=== PATIENT | female | born 1985 | race Caucasian/White ===

== ENCOUNTER 2018-11-18 10:34 | Outpatient (CLI) | payer MEDICAID ==
[2018-11-18 11:17] LABS: ADD UMIC YES; UR ASCORBIC ACID NEGATIVE (NEGATIVE); UR BILIRUBIN (Dip) NEGATIVE (NEGATIVE); UR BLOOD (Dip) NEGATIVE (NEGATIVE); UR CLARITY SLIGHTLY CLOUDY (CLEAR); UR COLOR YELLOW (YELLOW); UR GLUCOSE (Dip) NEGATIVE (NEGATIVE); UR KETONES (Dip) NEGATIVE (NEGATIVE); UR LEUKOCYTE ESTERASE (Dip) TRACE Leu/ul (NEGATIVE); UR MUCUS FEW /HPF (NONE SEEN); UR NITRITE (Dip) NEGATIVE (NEGATIVE); UR RBC 2 /HPF (0-5); UR SPECIFIC GRAVITY (Dip) 1.014 (1.003-1.030); UR SQUAMOUS EPITHELIAL CELL FEW /HPF (FEW); UR TOTAL PROTEIN (Dip) NEGATIVE (NEGATIVE); UR UROBILINOGEN (Dip) NEGATIVE (NEGATIVE); UR WBC 1 /HPF (0-5)
[2018-11-18 11:21] LABS: ADD MAN DIFF? NO
[2018-11-18 11:25] LABS: WHITE BLOOD COUNT 8.9 10^3/ul (4.8-10.8)
[2018-11-18 11:25] LABS: BASOPHIL # 0.1 10^3/ul (0.0-0.1); BASOPHILS % 0.6 % (0.0-2.0); EOSINOPHILS # 0.1 10^3/ul (0.0-0.5); EOSINOPHILS % 0.7 % (0.0-7.0); HEMATOCRIT 36.5 % (37.0-47.0); HEMOGLOBIN 12.1 g/dl (12.0-16.0); LYMPHOCYTES # 2.2 10^3/ul (0.8-2.9); LYMPHOCYTES % 24.5 % (15.0-51.0); MEAN CORPUSCULAR HEMOGLOBIN 31.3 pg (29.0-33.0); MEAN CORPUSCULAR HGB CONC 33.2 g/dl (32.0-37.0); MEAN CORPUSCULAR VOLUME 94.3 fl (82.0-101.0); MEAN PLATELET VOLUME 10.4 fl (7.4-10.4); MONOCYTE # 0.6 10^3/ul (0.3-0.9); MONOCYTES % 6.5 % (0.0-11.0); NEUTROPHIL # 5.8 10^3/ul (1.6-7.5); NEUTROPHILS % 65.8 % (39.0-77.0); PLATELET COUNT 212 10^3/UL (140-415); RED BLOOD COUNT 3.87 10^6/ul (4.20-5.40); RED CELL DISTRIBUTION WIDTH 13.2 % (11.5-14.5)
[2018-11-18 11:45] LABS: ALANINE AMINOTRANSFERASE 38 IU/L (13-69); ALBUMIN 3.5 g/dl (3.3-4.9); ALBUMIN/GLOBULIN RATIO 1.25; ALKALINE PHOSPHATASE 170 IU/L (42-121); ANION GAP 8 (5-13); ASPARTATE AMINO TRANSFERASE 24 IU/L (15-46); BILIRUBIN,INDIRECT 0.5 mg/dl (0-1.1); BILIRUBIN,TOTAL 0.5 mg/dl (0.2-1.3); BLOOD UREA NITROGEN 6 mg/dl (7-20); CALCIUM 9.2 mg/dl (8.4-10.2); CARBON DIOXIDE 23 mmol/L (21-31); CHLORIDE 105 mmol/L (97-110); CREATININE 0.38 mg/dl (0.44-1.00); Estimated GFR > 60 mL/min (>60); GLUCOSE 93 mg/dl (70-220); POTASSIUM 3.7 mmol/L (3.5-5.1); SODIUM 136 mmol/L (135-144); TOTAL PROTEIN 6.3 g/dl (6.1-8.1)
== END 2018-11-18 13:13 | disposition home or self-care (01) ==
LOC: OBT 10:34 → L-D 10:35 → OBT 13:13
DX: O62.9 Abnormality of forces of labor, unspecified (principal); Z3A.37 37 weeks gestation of pregnancy
CPT/HCPCS: 76818; 80053; 81001; 85025

== ENCOUNTER 2018-11-29 16:23 | Inpatient (IN) | payer MEDICAID ==
[2018-11-29] MEDS ORDERED: METHYLERGONOVINE 0.2 MG INJ IM (17:00)
[2018-11-29] MEDS ORDERED: LIDOCAINE 1% (MPF) 30 ML INJ INJ (17:00)
[2018-11-29] MEDS ORDERED: IBUPROFEN 600 MG TAB PO (17:00)
[2018-11-29] MEDS ORDERED: MISOPROSTOL 200 MCG TAB PR (17:00)
[2018-11-29] MEDS ORDERED: OXYTOCIN 30 UNITS/LR 500 ML IV ×2 (17:00→20:30)
[2018-11-29] MEDS ORDERED: CARBOPROST 250 MCG INJ IM (17:00)
[2018-11-29] MEDS: LACTATED RINGER'S 1,000 ML IV ×2 (17:27→20:24)
[2018-11-29] MEDS: AMPICILLIN 2 GM/NS (PMX) 100 ML IV (17:27)
[2018-11-29 17:38] LABS: ADD MAN DIFF? NO
[2018-11-29 17:39] LABS: WHITE BLOOD COUNT 8.6 10^3/ul (4.8-10.8)
[2018-11-29 17:40] LABS: BASOPHILS % 0.2 % (0.0-2.0); EOSINOPHILS # 0.1 10^3/ul (0.0-0.5); EOSINOPHILS % 0.9 % (0.0-7.0); HEMATOCRIT 38.1 % (37.0-47.0); HEMOGLOBIN 12.6 g/dl (12.0-16.0); LYMPHOCYTES # 2.1 10^3/ul (0.8-2.9); LYMPHOCYTES % 23.9 % (15.0-51.0); MEAN CORPUSCULAR HEMOGLOBIN 31.5 pg (29.0-33.0); MEAN CORPUSCULAR HGB CONC 33.1 g/dl (32.0-37.0); MEAN CORPUSCULAR VOLUME 95.3 fl (82.0-101.0); MEAN PLATELET VOLUME 10.7 fl (7.4-10.4); MONOCYTE # 0.6 10^3/ul (0.3-0.9); NEUTROPHIL # 5.8 10^3/ul (1.6-7.5); NEUTROPHILS % 66.8 % (39.0-77.0); PLATELET COUNT 217 10^3/UL (140-415); RED CELL DISTRIBUTION WIDTH 13.3 % (11.5-14.5)
[2018-11-29 17:59] LABS: INR 0.82; PROTIME 11.4 Sec (11.9-14.9); PT RATIO 0.9
[2018-11-29 18:00] LABS: PARTIAL THROMBOPLASTIN TIME 26.5 Sec (23.0-35.0)
[2018-11-29] MEDS: BUTORPHANOL 2 MG INJ IV (19:59)
[2018-11-29] MEDS ORDERED: FENTAnyl 2MCG/ML-ROPIV 0.2% 100 ML (20:51)
[2018-11-29] MEDS ORDERED: FENTAnyl 2MCG/ML-ROPIV 0.2% 100 ML BAG EPI (21:00)
[2018-11-29] MEDS ORDERED: NALOXONE (0.4 MG/ML) INJ IV (21:00)
[2018-11-29] MEDS ORDERED: DIPHENHYDRAMINE 50 MG INJ IV (21:00)
[2018-11-29] MEDS: ONDANSETRON 4 MG INJ IV (21:23)
[2018-11-29] MEDS: AMPICILLIN 1 GM/NS (PMX) 50 ML IV (21:28)
[2018-11-29] MEDS: OXYTOCIN 30 UNITS/LR 500 ML IV ×2 (22:45→22:46)
[2018-11-30] MEDS: LACTATED RINGER'S 1,000 ML IV* (00:11)
[2018-11-30] MEDS: BENZOCAINE 20% 56 ML SPRAY TOP (00:29)
[2018-11-30] MEDS: WITCH HAZEL/GLYCERIN PAD PR (00:29)
[2018-11-30] MEDS ORDERED: CARBOPROST 250 MCG INJ IM (00:30)
[2018-11-30] MEDS ORDERED: OXYTOCIN 30 UNITS/LR 500 ML IV (00:30)
[2018-11-30] MEDS: IBUPROFEN 600 MG TAB PO ×4 (00:30→17:41)
[2018-11-30] MEDS ORDERED: HYDROCODONE/APAP (5/325) TAB PO (00:30)
[2018-11-30] MEDS ORDERED: METHYLERGONOVINE 0.2 MG INJ IM (00:30)
[2018-11-30] MEDS ORDERED: DIBUCAINE 1% 30 GM OINT TOP (00:30)
[2018-11-30] MEDS ORDERED: MISOPROSTOL 200 MCG TAB PR (00:30)
[2018-11-30 08:50] LABS: ADD MAN DIFF? NO
[2018-11-30 08:54] LABS: BASOPHILS % 0.1 % (0.0-2.0); EOSINOPHILS % 0.1 % (0.0-7.0); HEMATOCRIT 36.2 % (37.0-47.0); LYMPHOCYTES # 2.5 10^3/ul (0.8-2.9); LYMPHOCYTES % 18.7 % (15.0-51.0); MEAN CORPUSCULAR HEMOGLOBIN 31.6 pg (29.0-33.0); MEAN CORPUSCULAR HGB CONC 33.1 g/dl (32.0-37.0); MEAN CORPUSCULAR VOLUME 95.3 fl (82.0-101.0); MONOCYTES % 7.4 % (0.0-11.0); NEUTROPHIL # 9.8 10^3/ul (1.6-7.5); NEUTROPHILS % 73.2 % (39.0-77.0); PLATELET COUNT 204 10^3/UL (140-415); RED CELL DISTRIBUTION WIDTH 13.3 % (11.5-14.5)
[2018-11-30 08:54] LABS: WHITE BLOOD COUNT 13.4 10^3/ul (4.8-10.8)
[2018-11-30] MEDS: SENNA/DOCUSATE NA (8.6MG/50MG) TAB PO ×2 (09:02→20:58)
[2018-11-30 14:57] LABS: RAPID PLASMA REAGIN NONREACTIVE (NR)
[2018-11-30] MEDS: ACETAMINOPHEN 325 MG TAB PO (16:39)
[2018-12-01] MEDS: IBUPROFEN 600 MG TAB PO ×3 (06:10→11:40)
[2018-12-01] MEDS: SENNA/DOCUSATE NA (8.6MG/50MG) TAB PO (09:55)
[2018-12-01] MEDS: DIPHTH/TET/ACEL PERTUSS (ADULT) 0.5 ML VIAL IM* (11:02)
== END 2018-12-01 17:37 | disposition home or self-care (01) | DRG 807 ==
LOC: OBT 16:23 → L-D 16:24 → OBT 16:39 → L-D 16:36 → PP1 23:40
PROVIDERS: Obstetrics & Gynecology
PROC: 10E0XZZ Delivery of Products of Conception, External Approach (ICD-10-PCS; principal; 2018-11-29)
DX: O99.824 Streptococcus B carrier state complicating childbirth (principal); O99.214 Obesity complicating childbirth; E66.9 Obesity, unspecified; Z37.0 Single live birth; Z3A.38 38 weeks gestation of pregnancy; Z23 Encounter for immunization
CPT/HCPCS: 62322; 85025; 85610; 85730; 86592; 86850; 86900; 86901; 90715